=== PATIENT | female | born 1980 | race Caucasian/White ===

== ENCOUNTER 2022-05-13 12:09 | Emergency (ER) | payer OTHER, SELFPAY ==
[2022-05-13 12:12] VITALS: BP 125/65; PULSE 54; RESP 18; TEMP 36.6; O2SAT 98; BMI 26.0
== END 2022-05-13 15:48 | disposition left against medical advice (07) ==
PROVIDERS: Emergency Provider Emergency Medicine
DX: R51.9 Headache, unspecified (principal)
CPT/HCPCS: 99281

== ENCOUNTER 2025-08-06 09:19 | Outpatient (AMB) | payer OTHER, SELFPAY ==
--- NOTE | 2025-08-06 09:22 | A.OFFVIS_ITS ---
Intake Visit Reasons: 6m Allergies tetanus toxoid, adsorbed (Tetanus Toxoid,Adsorbed) Allergy (Mild, Unverified 08/06/25 09:27) U From Compazine Allergy (Unknown, Uncoded 08/06/25 09:27) AGITATION Medication List - Last Reconciled 08/06/25 by Huong Concepcion CNP adiymaomla-jmkqviuqjjnhw-uzbi 50-300-40 mg 1 cap PO Q8H PRN 30 days galcanezumab-gnlm (Emgality Pen) 120 mg subcut .once a month 30 days levothyroxine 100 mcg PO QAM ondansetron 4 mg PO DAILY PRN propranolol ER (Inderal LA) 120 mg PO BID 90 days sumatriptan succinate mg subcut sumatriptan succinate take 1 tab at onset of headache; if no relief, may repeat 1 tab after at least 2 hrs; max = 2 tabs/24 hrs PO HPI Comments Details: She was doing okay. 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 May get one bad migraine once every 3 months. Does not get blurry vision with migraines anymore. Migraines with vomiting are rare, may happen 1-2x/year. Uses sumatriptan pills and injection, and butalbital as needed. Sumatriptan injection does not seem to work as fast as before. Triggers include weather change and stress. Gets some headaches that she is able to function with. Gets some milder GATES with her periods. Sleep was okay. She has a history of migraine headaches as well as a long history of ofrp-twg-xaclqma prescription abuse with daily medications for rebound headaches from using lots of Tylenol and caffeine pills or currently Excedrin. In the past she also was using Imitrex every day and buying it on the street. She has been treated with prophylactic medications. Nortriptyline and amitriptyline worked well for her but was too sedating. Has tried Corgard in the past. She has tried to topiramate but had side effects from it. Blurred vision is resolved. [facility] Medical History (Updated 08/06/25 @ 09:24 by Huong Concepcion CNP) Medication overuse headache Migraine Review of Systems Const Denies chills, Denies daytime sleepiness, Denies difficulty sleeping, Denies fatigue, Denies fever(s), Denies frequent falls, Reports headache(s), Denies increased appetite, Denies poor appetite, Denies snoring, Denies weakness, Denies weight gain and Denies weight loss Eyes Denies loss of vision ENT Denies vertigo, Denies dizziness, Reports headache(s) and Denies neck pain Card Denies chest pain at rest, Denies chest pain with activity, Denies syncope, Denies leg edema, Denies palpitations, Denies dyspnea and Denies dyspnea on exertion Resp Denies cough, Denies dyspnea, Denies dyspnea on exertion and Denies snoring GI Denies abdominal pain, Denies constipation, Denies heartburn, Denies diarrhea and Denies nausea Denies urinary frequency, Denies urinary incontinence and Denies urinary urgency Musc Denies abnormal gait, Denies back pain, Denies myalgias, Denies arthralgias, Denies neck pain, Denies numbness and Denies tingling Neuro Denies abnormal gait, Denies vertigo, Denies dizziness, Denies syncope, Denies frequent falls, Reports headache(s), Denies lack of coordination, Denies loss of vision, Denies memory loss, Denies numbness, Denies Other visual disturbances, Denies restless legs, Denies seizure-like activity, Denies tingling, Denies paresthesias, Denies tremor(s) and Denies weakness Psych Denies anxiety, Denies depression, Denies auditory hallucinations, Denies memory loss and Denies visual hallucinations Endo Denies fatigue and Denies palpitations Physical Exam Const Other: General Appearance:? normal, in no acute distress. Heart:? S1, S2 normal, no murmurs. Lungs:? clear anteriorly and posteriorly. Musculoskeletal:? normal. Extremities:? no edema. Psych:? alert, oriented, cognitive function intact, cooperative with exam. Neuro Other: Abnormal Neurological Findings:?none.? Mental Status: alert and oriented X 3. Normal attention, orientation, memory, and affect. Cranial Nerves: Pupils are equal, round, and reactive to light. External ocular muscles are intact. Visual guzman are full, no ptosis. Face is symmetrical, no facial weakness or droop. Facial sensations are normal. Tongue protrudes in midline. Palate elevates symmetrically. Shoulder shrugging is normal Motor Examination: Normal muscle tone, bulk and strength. No atrophy or fasciculations. No drift of the extended upper extremities. DTR 2+. Plantars are flexor. Sensory Exam: Normal light touch, temperature, pinprick, vibration, and joint- position sensations. Rhomberg sign is absent. Coordination: No ataxia. No titubation. Gait Exam: Within normal limits. Cerebellar Signs: Dumxlx-ks-mmyd is okay. Extrapyramidal System: No tremor, rigidity with normal facial expressions. No bradykinesia. No bradyphrenia. Normal arm swing and posture. No propulsion or retropulsion. Speech: Normal. Assessment & Plan Assessment & Plan (1) Chronic migraine w/o aura w/o status migrainosus, not intractable: Code(s): G43.709 - Chronic migraine without aura, not intractable, without status migrainosus Category: Medical Plan: Continue Emgality Auto-injector 120mg/mL subcutaneous monthly. Continue propranolol 120mg 1 capsule twice a day. Continue sumatriptan 100mg 1 tablet as needed for migraine. Continue sumatriptan solution auto-injector 6mg/0.5mL 1 subcutaneous daily as needed for migraine #5 for 30 days. Continue ncminbssjn-IOUN-jqmh 50-300-40mg 1 capsule q8h as needed for headache #30 for 30 days. Continue ondansetron 4mg 1 tablet as needed for nausea/vomiting #10 for 30 days. Follow up in 6 months or sooner as needed. Plan Meds tried: topiramate, amitriptyline, nortriptyline, propranolol Medications: New ondansetron 4 mg PO DAILY PRN 10 tabs 5RF nausea and vomiting 30 days Coding Level of Care Code Est Pt Level 4 (78056) Diagnoses Chronic migraine w/o aura w/o status migrainosus, not intractable G43.709
--- OUTSIDE RECORDS SUMMARY | 2025-08-06 10:04 | XMS_ITS | Clinical Summary ---
Author Organization [facility] [address] [place] [address] [place] [phone] Phone Care Team Providers Care Grape Grower Name Role Phone Yvette Leslie Primary Care Provider + Allergies Active Allergy Reactions Criticality Noted Date Comments Prochlorperazine Other 10/01/2024 Feels like she is going to crawl out of her skin Victor Hugo Flavor Hives 05/01/2012 Fresh only Tetanus And Diphtheria Toxoids Nausea And Vomiting 01/11/2013 Couldn't walk for 3 days after Medications Emgality Pen 120 mg/mL injection pen every 28 (twenty-eight) days. 09/04/19 25 Active ondansetron ODT (ZOFRAN-ODT) [address] 1 TABLET ON THE TONGUE AND ALLOW TO DISSOLVE ONCE A DAY FOR NAUSEA 30 DAYS 11/28/19 24 Active propranolol LA (INDERAL LA) 120 mg 24 hr capsule Take 1 capsule (120 mg total) by mouth 2 (two) times a day. Active SUMAtriptan (IMITREX) 6 mg/0.5 mL subcutaneous solution pen INJECT 1 SYRINGE SUBCUTANEOUSLY ONCE A DAY EVERY 30 DAYS DIECTED NEEDED 09/08/19 25 Active SUMAtriptan (IMITREX) 100 mg tablet TAKE 1 TABLET BY MOUTH AT ONSET OF MIGRAINE EVERY 4 HOURS UP TO TWICE A DAY FOR 30 DAYS 09/07/19 25 Active levothyroxine (SYNTHROID, LEVOTHROID) 100 mcg tabletIndications: Hypothyroidism, unspecified Take 1 tablet (100 mcg total) by mouth 1 (one) time each day before breakfast. 78 tablet 2 02/07/20 25 Active Active Problems No known active problems Encounters Date Type Department Care Team Description 06/26/2025 Telephone Internal Medicine [address] [phone] Yvette Leslie PA 05/22/2025 9:45 AM EDT Office Visit Internal Medicine [address] [phone] Yvette Leslie PA Globus sensation (Primary Dx) 05/22/2025 Telephone Internal Medicine [address] [phone] Yvette Leslie PA from Last 3 Months Surgical History Surgery Date Site/Laterality Comments APPENDECTOMY 08/15/2006 PROCEDURE: HISTORICAL APPENDECTOMY SECTION PROCEDURE: HISTORICAL DELIVERY Medical History Medical History Date Comments History of gastritis 10/06/2015 DX:History of gastritis History of migraine headaches 12/18/2013 DX :History of migraine headaches Hypothyroidism 07/31/2005 DX:Hypothyroidis m Iron deficiency 11/22/2017 DX:Iron deficien cy Lipoma 12/14/2017 DX:Lipoma Migraine 03/21/2017 DX:Migraine History of 2019 novel rose virus disease (COVID-19) 11/16/2019 DX:History of 2019 novel coronavirus disease (COVID-19) Family History Medical History Relation Name Comments Dementia Father Hypertension Father Breast cancer Father's side Cousin Diabetes Mother Leukemia Mother Dementia Paternal Grandmother Relation Name Status Comments Father Father's side Cousin Mother Paternal Grandmother Social History Tobacco Use Types Packs/Day Years Used Date Smoking Tobacco: Never Smokeless Tobacco: Never Tobacco Cessation:Counseling Given: Not Answered Alcohol Use Standard Drinks/Week Comments No 0 (1 standard drink = 0.6 oz pur e alcohol) Interpersonal Safety Answer Date Record ed Physical Abuse Unrecognized value 10/09/2024 Verbal Abuse Unrecognized value 10/09/2024 Comments No Sex and Gender Information Value Date Recorded Sex Assigned at Female 10/09/2024 1:16 PM EST Legal Sex Female 6:31 AM EST Gender Identity Female 10/09/2024 1:17 PM EST Sexual Orientation Straight 10/09/2024 1: 17 PM EST Obstetrics History Para Term AB IAB SAB Ectopic Multiple Livin g Live Births 2 2 2 Date Outcome GA Total Labor Labor/2nd/3rd Weight Sex Type Anes PTL Ludy A1 A5 Name Clin Term Term Last Filed Vital Signs Vital Sign Reading Time Taken Comments Blood Pressure 125/76 05/22/2025 9:50 AM EDT Pulse 56 05/22/2025 9:50 AM EDT Temperature 36.6 C (97.8 F) 05/22/2025 9:50 AM EDT Respiratory Rate 18 10/09/2024 3:08 PM EST Oxygen Saturation 99% 05/22/2025 9:50 AM EDT Inhaled Oxygen Concentration - - Weight 63.2 kg (139 lb 6.4 oz) 05/22/2025 9:50 A M EDT Height 154.9 cm (5' 1 ) 05/22/2025 9:50 AM EDT Body Mass Index 26.34 05/22/2025 9:50 AM EDT Plan of Treatment Health Maintenance Due Date Last Done Comments Hepatitis B Vaccines (3 of 3 - 19+ 3-dose series) 09/04/2005 04/05/2005, 03/04/2005 DTaP,Tdap,and Td Vaccines (2 - Td or Tdap) 01/13/2015 01/13/2005 HIV Screening 07/24/2022 Hepatitis C Screening 07/24/2022 Social Influencers of Health Screening 07/24/2022 Depression Screening 08/15/2024 COVID-19 Vaccine ( season) 2025 10/07/2021, 04/22/2021, 04/01/2021 Influenza Vaccine (#1) 2025 , 06/09/2023, 06/27/2021, Additional history exists Cervical Cancer Screening: Pap Smear 04/05/2026 04/05/2023 Breast Cancer Screening 07/24/2026 07/24/20 24, 07/05/2023, 06/16/2021 Cholesterol Screening (Lipid Panel) 05/22/2029 05/22/2024 Colorectal Cancer Screening: Colonoscopy 10/09/2034 10/09/2024 RSV Immunization Adult Patients (1 - 1-dose 75+ series) 2054 HIB Vaccines Aged Out No longer eligi ble based on patient's age to complete this topic HPV Vaccines Aged Out No longer eligi ble based on patient's age to complete this topic Hepatitis A Vaccines Aged Out No long er eligible based on patient's age to complete this topic IPV Vaccines Aged Out No longer eligi ble based on patient's age to complete this topic MMR Vaccines Aged Out No longer eligi ble based on patient's age to complete this topic Meningococcal ACWY Vaccine Aged Out N o longer eligible based on patient's age to complete this topic Meningococcal B Vaccine Aged Out No l onger eligible based on patient's age to complete this topic Pneumococcal Vaccine: Pediatrics (0 to 5 Years) and At-Risk Patients (6 to 49 Years) Aged Out No longer eligible based on patient's age to complete this topic RSV Immunization Patients Under 20 months Aged Out No longer eligible based on patient's age to complete this topic Varicella Vaccines Aged Out No longer eligible based on patient's age to complete this topic Procedures Procedure Name Priority Date/Time Associated Diagnosis Comments COLONOSCOPY Routine 10/09/2024 2:47 PM EST Colon cancer screening MG MAMMO DIGITAL SCREENING W SOL BILAT Routine 07/24/2024 9:15 AM EST Encounter for screening mammogram for breast cancer PAP SMEAR Routine 04/05/2023 from Last 3 Months or Most Recently Relevant to Health Maintenance Results * COLONOSCOPY Anesthesia - MAC; [facility] ENDOSCOPY (10/09/2024 2:47 PM EST) Anatomical Region Laterality Modality Endoscopy 10/09/2024 2:19 PM EST Impressions 10/09/2024 2:45 PM EST - One 5 mm polyp in the sigmoid colon, removed with a cold snare. Resected and retrieved. - The examination was otherwise normal on direct and retroflexion views. Recommendation: - - Discharge patient to home. - High fiber diet. - Continue present medications. - Await pathology results. - Repeat colonoscopy for surveillance based on pathology results. Narrative 10/09/2024 2:45 PM EST [facility] GI Patient Name: Janet Henning Procedure Date: 10/09/2024 2:19 PM Date of : 1980 Age: 44 Gender: Female Note Status: Finalized Attending MD: Tristan Lopez DO, [id number] Procedure Date No Time: 10/09/2024 Procedure: Colonoscopy Indications: Screening for colorectal malignant neoplasm Providers: Tristan Lopez DO Referring MD: Yvette Leslie PA-C Medicines: Monitored Anesthesia Care Complications: No immediate complications. Estimated blood loss: Minimal. Estimated Blood Loss: Estimated blood loss was minimal. Procedure: Pre-Anesthesia Assessment: - - Prior to the procedure, a History and Physical was performed, and patient medications and allergies were reviewed. The patient is competent. The risks and benefits of the procedure and the sedation options and risks were discussed with the patient. All questions were answered and informed consent was obtained. Patient identification and proposed procedure were verified by the physician, the nurse, the anesthesiologist, the area coordinator and the swimming pool service technician in the pre-procedure area in the endoscopy suite. Mental Status Examination: alert and oriented. Airway Examination: normal oropharyngeal airway and neck mobility. Respiratory Examination: clear to auscultation. CV Examination: normal. Prophylactic Antibiotics: The patient does not require prophylactic antibiotics. Prior Anticoagulants: The patient has taken no anticoagulant or antiplatelet agents. ASA Grade Assessment: II - A patient with severe systemic disease. After reviewing the risks and benefits, the patient was deemed in satisfactory condition to undergo the procedure. The anesthesia plan was to use monitored anesthesia care (MAC). Immediately prior to administration of medications, the patient was re-assessed for adequacy to receive sedatives. The heart rate, respiratory rate, oxygen saturations, blood pressure, adequacy of pulmonary ventilation, and response to care were monitored throughout the procedure. The physical status of the patient was re-assessed after the procedure. After I obtained informed consent, the scope was passed under direct vision. Throughout the procedure, the patient's blood pressure, pulse, and oxygen saturations were monitored continuously. The Colonoscope was introduced through the anus and advanced to the cecum, identified by appendiceal orifice and ileocecal valve. The colonoscopy was performed without difficulty. The patient tolerated the procedure well. The quality of the bowel preparation was good. Anatomical landmarks were photographed. Findings: The perianal and digital rectal examinations were normal. A 5 mm polyp was found in the sigmoid colon. The polyp was sessile. The polyp was removed with a cold snare. Resection and retrieval were complete. Verification of patient identification for the specimen was done. Estimated blood loss was minimal. The exam was otherwise without abnormality on direct and retroflexion views. Procedure Code(s): --- Professional --- 94180, Colonoscopy, flexible; with removal of tumor(s), polyp(s), or other lesion(s) by snare technique Diagnosis Code(s): --- Professional --- Z12.11, Encounter for screening for malignant neoplasm of colon D12.5, Benign neoplasm of sigmoid colon CPT copyright 2020 [employer]. All rights reserved. The codes documented in this report are preliminary and upon intake nurse review may be revised to meet current compliance requirements. TRISTAN Lopez DO 10/09/2024 2:45:29 PM This report has been signed electronically.Tristan Lopez DO Number of Addenda: 0 Note Initiated On: 10/09/2024 2:19 PM Scope Withdrawal Time: 0 hours 6 minutes 27 seconds Scope In: 2:33:08 PM Scope Out: 2:44:23 PM Endoscopy Department at [facility] - [address] [place] [id number] Procedure Note Tristan Lopez DO - 10/09/2024 [facility] GI Patient Name: Janet Henning Procedure Date: 10/09/2024 2:19 PM Date of : 1980 Age: 44 Gender: Female Note Status: Finalized Attending MD: Tristan Lopez DO, [id number] Procedure Date No Time: 10/09/2024 Procedure: Colonoscopy Indications: Screening for colorectal malignant neoplasm Providers: Tristan Lopez DO Referring MD: Yvette Leslie PA-C Medicines: Monitored Anesthesia Care Complications: No immediate complications. Estimated blood loss: Minimal. Estimated Blood Loss: Estimated blood loss was minimal. Procedure: Pre-Anesthesia Assessment: - - Prior to the procedure, a History and Physicalwas performed, and patient medications and allergieswere reviewed. The patient is competent. The risks and benefits of the procedure and the sedation optionsand risks were discussed with the patient. Allquestions were answered and informed consent was obtained. Patient identification and proposed procedure were verified by the physician, the nurse, the anesthesiologist, the area coordinator and thetechnician in the pre-procedure area in the endoscopy suite. Mental Status Examination: alert and oriented.Airway Examination: normal oropharyngeal airway and neck mobility. Respiratory Examination: clear to auscultation. CV Examination: normal. Prophylactic Antibiotics: The patient does not requireprophylactic antibiotics. Prior Anticoagulants: The patient has taken no anticoagulant or antiplatelet agents. ASA Grade Assessment: II - A patient with severesystemic disease. After reviewing the risks and benefits,the patient was deemed in satisfactory condition to undergo the procedure. The anesthesia plan was touse monitored anesthesia care (MAC). Immediately priorto administration of medications, the patient was re-assessed for adequacy to receive sedatives. The heart rate, respiratory rate, oxygen saturations, blood pressure, adequacy of pulmonary ventilation,and response to care were monitored throughout the procedure. The physical status of the patient was re-assessed after the procedure. After I obtained informed consent, the scope was passed under direct vision. Throughout theprocedure, the patient's blood pressure, pulse, and oxygen saturations were monitored continuously. The Colonoscope was introduced through the anus and advanced to the cecum, identified by appendiceal orifice and ileocecal valve. The colonoscopy was performed without difficulty. The patient tolerated the procedure well. The quality of the bowel preparation was good. Anatomical landmarks were photographed. Findings: The perianal and digital rectal examinations were normal. A 5 mm polyp was found in the sigmoid colon. Thepolyp was sessile. The polyp was removed with a coldsnare. Resection and retrieval were complete. Verificationof patient identification for the specimen was done. Estimated blood loss was minimal. The exam was otherwise without abnormality ondirect and retroflexion views. Procedure Code(s): --- Professional --- 06619, Colonoscopy, flexible; with removal of tumor(s), polyp(s), or other lesion(s) by snare technique Diagnosis Code(s): --- Professional --- Z12.11, Encounter for screening for malignantneoplasm of colon D12.5, Benign neoplasm of sigmoid colon CPT copyright 2020 [employer]. All rights reserved. The codes documented in this report are preliminary and upon intake nurse reviewmay be revised to meet current compliance requirements. TRISTAN Lopez DO 10/09/2024 2:45:29 PM This report has been signed electronically.Tristan Lopez DO Number of Addenda: 0 Note Initiated On: 10/09/2024 2:19 PM Scope Withdrawal Time: 0 hours 6 minutes 27 seconds Scope In: 2:33:08 PM Scope Out: 2:44:23 PM Endoscopy Department at [facility] - [address] [place] [id number] IMPRESSION: - One 5 mm polyp in the sigmoid colon, removed with a cold snare. Resected and retrieved. - The examination was otherwise normal on directand retroflexion views. Recommendation: - - Discharge patient to home. - High fiber diet. - Continue present medications. - Await pathology results. - Repeat colonoscopy for surveillance based on pathology results. Tristan Lopez DO GI~PROCEDURE ORDERABLES Final Re sult * MG Mammo Digital Screening w Sol bilat (07/24/2024 9:15 AM EST) Anatomical Region Laterality Modality Breast Bilateral Mammography 07/24/2024 11:2 8 AM EST Impressions 07/24/2024 11:33 AM EST Benign. BI-RADS CATEGORY: 1 - NEGATIVE RECOMMENDATION: Screening bilateral mammogram is recommended in 1 year. Mammo Location: [facility], [address] [place] [address], [id number], . -------- FINAL REPORT -------- Dictated By: Margarette Bernal Dictated Date: 07/24/2024 11:28 ET Assigned Physician: Margarette Bernal Reviewed and Electronically Signed By: Margarette Bernal Signed Date: 07/24/2024 11:33 ET Workstation ID: [id number] Transcribed By: Self Edit Transcribed Date: 07/24/2024 11:28 ET Narrative 07/24/2024 11:33 AM EST CLINICAL: 44 years old, Female, routine annual exam. COMPARISON: Mammograms of 06/16/2021 and 07/05/2023 TECHNIQUE: Bilateral MLO and CC views were obtained digitally with 3-D mammogram (digital breast tomosynthesis). Computer-aided detection was utilized in evaluation of this exam (CAD). FINDINGS: There is no evidence of suspicious mass or architectural distortion. No worrisome calcifications are evident. There has been no significant change from prior exam(s). BREAST DENSITY: C - The breasts are heterogeneously dense which may obscure small masses. Procedure Note Margarette Bernal MD - 07/24/2024 CLINICAL: 44 years old, Female, routine annual exam. COMPARISON: Mammograms of 06/16/2021 and 07/05/2023 TECHNIQUE: Bilateral MLO and CC views were obtained digitally with 3-Dmammogram (digital breast tomosynthesis). Computer-aided detection wasutilized in evaluation of this exam (CAD). FINDINGS: There is no evidence of suspicious mass or architectural distortion. Noworrisome calcifications are evident. There has been no significantchange from prior exam(s). BREAST DENSITY: C - The breasts are heterogeneously dense which mayobscure small masses. IMPRESSION: Benign. BI-RADS CATEGORY: 1 - NEGATIVE RECOMMENDATION: Screening bilateral mammogram is recommended in 1 year. Mammo Location: [facility], [address] [place] [address], [facility] [place], . -------- FINAL REPORT -------- Dictated By: Margarette Bernal Dictated Date: 07/24/2024 11:28 ET Assigned Physician: Margarette Bernal Reviewed and Electronically Signed By: Margarette Bernal Signed Date: 07/24/2024 11:33 ET Workstation ID: [id number] Transcribed By: Self Edit Transcribed Date: 07/24/2024 11:28 ET Yvette [facility] IMG BI PROCEDURES Final Result * Pap smear (04/05/2023) 04/05/2023 Narrative HISTORICAL TESTING LAB RESULTING AGENCY - 04/22/2023 3:45 PM EDT [id number] THINPREP PAP, IMAGED: NEGATIVE FOR SQUAMOUS INTRAEPITHELIAL LESION AND MALIGNANCY . REACTIVE CELLULAR CHANGES. NOTE: ADEQUACY DEEMED SATISFACTORY AFTER REPROCESSING WITH ACID WASH PROCEDURE TO REMOVE EXCESSIVE BLOOD. ANJALI THOMAS(ASCP) (CASE SCREENED 04 21 2023) ALICIA PAZ M.D. , PATHOLOGIST (CASE ELECTRONICALLY SIGNED 04 22 2023) RESULT OF APTIMA HIGH RISK HPV ASSAY: HIGH RISK HPV: NEGATIVE (SEROTYPES 16,18,31,33,35,39,45,51,52,56,58,59,66,68) COMPLETED ON 2023-04-07 ADEQUACY: SATISFACTORY ENDOCERVICAL/TRANSFORMATION ZONE COMPONENT PRESENT. SOURCE: THINPREP PAP HPV ANY DX: REFLEX 16 AND 18, CERVICAL, IMAGED CLINICAL INFORMATION: HPV ANY DIAGNOSIS. HORMONES, PAP HX NEGATIVE, [Z01.419] [place] [facility] CYTOLOGY ORDERABLES Final Result HISTORICAL TESTING LAB RESULTING AGENCY from Last 3 Months or Most Recently Relevant to Health Maintenance Insurance [facility] Care Teams Grape Grower Relationship Specialty Start Date End Date Yvette Leslie PA [address] [place] [address] PCP - General Internal Medicine 11/20/19
== END 2025-08-06 09:36 | disposition home or self-care (01) ==
LOC: HO.HSM 09:20
PROVIDERS: PCP Physician Assistant; Visit Provider Registered Nurse
DX: G43.709 Chronic migraine without aura, not intractable, without status migrainosus (principal)
CPT/HCPCS: 99214